=== PATIENT | female | born 1980 | race Caucasian/White ===

== ENCOUNTER 2016-10-20 16:19 | Emergency (ER) | payer BC, OTHER ==
--- NOTE | 2016-10-20 16:54 | Emergency Department Report ---
Chief Complaint: Extremity Injury, Upper Stated Complaint: RT WRIST SWOLLEN Time Seen by Provider: 10/20/16 16:51 - HPI History of Present Illness: PT c/o R wrist pain PT states she works in a [employer]. pt denies injury - ROS Review of Systems: - fever + R wrist swelling - Exam Physical Exam: decrease rom to R wrist MSE screening note: Focused history and physical exam performed. Due to findings the following was ordered: xr ED Disposition for MSE Condition: Stable
[2016-10-20 22:47] VITALS: BP 139/88
--- NOTE | 2016-10-20 23:32 | XRay Report ---
FINAL REPORT PROCEDURE: XR WRIST 3+V RT TECHNIQUE: RIGHT wrist radiographs, including AP, lateral, and oblique views. CPT 07921 HISTORY: wrist pain and swelling COMPARISON: No prior studies are available for comparison. FINDINGS: Fracture (s) and/or Dislocation(s): None . Alignment: Normal . Joint space(s): Normal . Soft tissues: Normal . Bone mineralization: Normal . Foreign bodies: None . IMPRESSION: Normal Examination.
[2016-10-20] MEDS ORDERED: TORADOL IM ONE (23:55)
--- NOTE | 2016-10-21 00:03 | Emergency Department Report ---
HPI - General Chief Complaint: Extremity Injury, Upper Time Seen by Provider: 10/20/16 16:51 - HPI HPI: Patient is a 36-year-old female presents to ED complaining of right upper wrist pain and swelling 4 days. Patient denies any trauma or injury to the wrist or hand. Patient states throbbing in nature. Patient states it is not worsened by movement but worsened by touch. She states her pain is localized to distal arm before for her wrist. She denies any bleeding, loss of sensation. ED Past Medical Hx - Past Medical History Previous Medical History?: No - Surgical History Past Surgical History?: Yes Additional Surgical History: D&C - Social History Smoking Status: Current Every Day Smoker Substance Use Type: Alcohol - Medications Home Medications: Home Medications Medication Instructions Recorded Confirmed Last Taken Type Cyclobenzaprine [Flexeril] 10 mg PO QHS PRN #20 tablet 10/21/16 Unknown Rx Naproxen [Naprosyn] 500 mg PO BID #30 tablet 10/21/16 Unknown Rx ED Review of Systems ROS: Stated complaint: RT WRIST SWOLLEN Other details as noted in HPI Constitutional: denies: chills, fever Eyes: denies: eye pain, eye discharge, vision change ENT: denies: ear pain, throat pain Respiratory: denies: cough, shortness of breath, wheezing Cardiovascular: denies: chest pain, palpitations Endocrine: no symptoms reported Gastrointestinal: denies: abdominal pain, nausea, diarrhea Genitourinary: denies: urgency, dysuria, discharge Musculoskeletal: denies: back pain, joint swelling, arthralgia Skin: denies: rash, lesions Neurological: denies: headache, weakness, paresthesias Psychiatric: denies: anxiety, depression Hematological/Lymphatic: denies: easy bleeding, easy bruising Physical Exam - Physical Exam Vital Signs: Vital Signs 10/20/16 10/20/16 16:51 22:46 Temperature 98.6 F 97.6 F Pulse Rate 79 78 Respiratory 18 18 Rate Blood Pressure 116/69 Blood Pressure 139/88 [Right] O2 Sat by Pulse 97 98 Oximetry Physical Exam: GENERAL: Alert and oriented x3, no apparent distress, Normal Gait, atraumatic. HEAD: Head is normocephalic and a-traumatic. LUNGS: Symetrical with respiration, No wheezing, no rales or crackles, CTAB. HEART: S1, S2 present, regular rate and rhythm without murmur, no rubs, no gallops. Non tender to palpation EXTREMITIES/MUSCULOSKELETAL: No cyanosis, clubbing, rash, lesions or edema. Full ROM bilaterally. UE/LE Pulses 2+ bilaterally. Wrist joints intact bilaterally for range of movement. Tenderness to palpation of the posterior wrist. No bleeding, mild soft tissue swelling noted above the right wrist. NEUROLOGIC: The patient is cooperative with no focal neurologic deficits. Cranial nerves II through XII are grossly intact. Normal speech. Normal sensation in bilateral upper and lower extremities, No loss of sensation, PSYCHIATRIC: Mood is congruent with affect, denies suicidal or homicidal ideations. SKIN: Warm and dry, No lesions, No ulceration or induration present. ED Course Vital Signs 10/20/16 10/20/16 16:51 22:46 Temperature 98.6 F 97.6 F Pulse Rate 79 78 Respiratory 18 18 Rate Blood Pressure 116/69 Blood Pressure 139/88 [Right] O2 Sat by Pulse 97 98 Oximetry ED Medical Decision Making - Radiology Data Radiology results: report reviewed, image reviewed FINAL REPORT PROCEDURE: XR WRIST 3+V RT TECHNIQUE: RIGHT wrist radiographs, including AP, lateral, and oblique views. CPT 92350 HISTORY: wrist pain and swelling COMPARISON: No prior studies are available for comparison. FINDINGS: Fracture (s) and/or Dislocation(s): None . Alignment: Normal . Joint space(s): Normal . Soft tissues: Normal . Bone mineralization: Normal . Foreign bodies: None . IMPRESSION: Normal Examination. Transcribed By: [facility] [place] Dictated By: MONTANA SANDERSON Electronically Authenticated By: MONTANA SANDERSON Signed Date/Time: 10/20/16 1897 - Medical Decision Making 36-year-old female presents with muscle spasm of the pain ED course: Patient received Toradol in ED. Discussed the patient home medication muscle relaxant and in face. Discussed the patient to apply heat to affected muscle groups. Vital signs are normal patient is in no acute distress patient states she understands instructions given Discussed the patient to follow up with primary care physician. Critical care attestation.: If time is entered above; I have spent that time in minutes in the direct care of this critically ill patient, excluding procedure time. ED Disposition Clinical Impression: Myalgia, Muscle spasm Disposition: [id number] TO HOME OR SELFCARE Is pt being admited?: No Does the pt Need Aspirin: No Condition: Stable Instructions: Muscle Spasm (ED), Trigger Point Pain (ED), Heat Pack Application (ED) Prescriptions: Cyclobenzaprine [Flexeril] 10 mg PO QHS PRN #20 tablet PRN Reason: Muscle Spasm Naproxen [Naprosyn] 500 mg PO BID #30 tablet Referrals: PRIMARY CAREMD [Primary Care Provider] - 3-5 Days RAMÓN HARRIS MD [Referring] - 3-5 Days [facility] [Outside] - 3-5 Days [facility] [Outside] - 3-5 Days [facility] [Outside] - 3-5 Days Forms: Work/School Release Form(ED) Time of Disposition: 00:10
== END 2016-10-21 00:25 | disposition home or self-care (01) ==
LOC: ED 16:19
DX: M79.1 Myalgia (principal); M62.838 Other muscle spasm; F17.200 Nicotine dependence, unspecified, uncomplicated
CPT/HCPCS: 73110; 96372; 99283; J1885

== ENCOUNTER 2017-08-24 09:58 | Emergency (ER) | payer BC ==
[2017-08-24 10:04] VITALS: BP 115/71
== END 2017-08-24 14:50 | disposition left against medical advice (07) ==
LOC: ED 09:58
DX: M25.50 Pain in unspecified joint (principal); Z53.21 Procedure and treatment not carried out due to patient leaving prior to being seen by health care provider